=== PATIENT | male | born 1980 | race Caucasian/White ===

== ENCOUNTER → 2020-07-16 | Outpatient (CLI) | payer OTHER ==
--- NOTE | 2020-07-16 15:05 | RAD ---
EXAM: AP pelvis, AP and lateral views both hips DATE: 07/16/2020 12:00 AM INDICATION: Reason: HIP DYSPHLAGIA, HIP PAIN / Spl. Instructions: / History: COMPARISON: No Prior FINDINGS: No evidence of acute fracture or dislocation. Severe bilateral hip joint degenerative change with proliferative changes and joint space narrowing/effacement. Mild SI joint degenerative changes are seen. IMPRESSION: No evidence of acute fracture or dislocation. Bilateral hip joint degenerative changes are seen. Electronically signed by: Taz Black MD (07/16/2020 3:01 PM) [facility]
== END | disposition home or self-care (01) ==
LOC: RAD 13:36
PROVIDERS: ATTEND Physician Assistant
DX: M16.0 Bilateral primary osteoarthritis of hip (principal); M46.1 Sacroiliitis, not elsewhere classified
CPT/HCPCS: 73521